=== PATIENT | male | born 1945 | race Caucasian/White ===

== ENCOUNTER → 2018-08-02 | Outpatient (CLI) | payer MEDICARE, BC ==
[~2018-08-02] MED LIST: IOPAMIDOL 370 MG/ML 200 ML INFUS..BTL INJ ONE; SODIUM CHLORIDE 0.9% 100 ML 100 ML ONE; SODIUM CHLORIDE 0.9% 250ML 0 ML ONE
[2018-08-02 09:55] LABS: BLOOD UREA NITROGEN 19 mg/dL (7-26); BUN/CREATININE RATIO 18 (6-25); CREATININE, SERUM 1.04 mg/dL (0.72-1.25); EST GLOMERULAR FILTRATION RATE > 60 ML/MIN (60-)
--- NOTE | 2018-08-02 11:35 | Diagnostic Imaging Report ---
ADDENDUM #1 The following addendum is being made to comply with coding criteria, and does not substantially change the findings or recommendations of the original report All CT scans are performed using radiation dose reduction techniques. Technical factors are evaluated and adjusted to ensure appropriate moderation of exposure. Automated dose management technology is applied to adjust the radiation dose to minimize exposure while achieving a diagnostic-quality image. Signed by: Dr. Willem Huang M.D. on 08/09/2018 12:02 PM ORIGINAL REPORT EXAM: CT Abdomen and Pelvis WITHOUT and WITH contrast INDICATION: Right kidney tumor 3 cm. History of prostate cancer. COMPARISON: None. TECHNIQUE: Abdomen and pelvis were scanned utilizing a multidetector helical scanner from the lung base to the pubic symphysis before and after administration of IV contrast. Coronal and sagittal reformations were obtained. Renal mass protocol was performed. IV CONTRAST: 100 mL of Isovue-370 ORAL CONTRAST: Water RADIATION DOSE: Total DLP: 1721.26 mGy*cm Estimated effective dose: (DLP x 0.015 x size factor) mSv COMPLICATIONS: None FINDINGS: LINES and TUBES: None. LOWER THORAX: Unremarkable HEPATOBILIARY: No focal hepatic lesions. No biliary ductal dilation. GALLBLADDER: No radio-opaque stones or sludge. No wall thickening. SPLEEN: No splenomegaly. PANCREAS: No focal masses or ductal dilatation. ADRENALS: No adrenal nodules KIDNEYS/URETERS: Kidneys enhance symmetrically. No hydronephrosis. 3.0 cm enhancing mass at the posterior inferior right kidney. This is best seen on series 4 image 103. There is an adjacent 3.3 cm cyst. This is best seen on series 4 image 101. 1.0 cm enhancing mass at the inferior left kidney best seen on coronal reformatted image 65. 1.0 cm enhancing mass in the mid left kidney best seen on coronal reformatted image 65. No stones. GI TRACT: No abnormal distention, wall thickening, or evidence of bowel obstruction. Appendix is normal. PELVIC ORGANS/BLADDER: Surgical clips in the region of the prostate gland. The urinary bladder and remainder of the visualized pelvic structures are otherwise unremarkable. LYMPH NODES: Several prominent lymph nodes in the mid abdomen/mesentery with mild adjacent fat stranding are seen. The findings are best seen on series 7 image 61 through 80. This is a nonspecific finding. VESSELS: Unremarkable. PERITONEUM / RETROPERITONEUM: No free air or fluid. BONES: Unremarkable. SOFT TISSUES: Unremarkable. IMPRESSION: 3.0 cm enhancing mass at the posterior inferior right kidney. This is worrisome for renal cell carcinoma. There is an adjacent 3.3 cm cyst. 1.0 cm enhancing mass at the inferior left kidney. This is worrisome for renal cell carcinoma. 1.0 cm enhancing mass in the mid left kidney. This is worrisome for renal cell carcinoma. Several prominent lymph nodes in the mid abdomen/mesentery with mild adjacent fat stranding are seen. This is a nonspecific finding. Signed by: Dr. Willem Huang M.D. on 08/02/2018 11:31 AM
== END ==
LOC: CT 09:03
PROVIDERS: ATTEND Urology
DX: N28.1 Cyst of kidney, acquired (principal)
CPT/HCPCS: 36415; 74178; 82565; 84520; Q9967; J7050

== ENCOUNTER → 2019-01-10 | Outpatient (CLI) | payer MEDICARE, BC ==
[~2019-01-10] MED LIST changes: -SODIUM CHLORIDE 0.9% 100 ML 100 ML ONE; -SODIUM CHLORIDE 0.9% 250ML 0 ML ONE; +SODIUM CHLORIDE 0.9% 250ML 250 ML ONE; +SODIUM CHLORIDE 0.9% 500ML 500 ML ONE
[2019-01-10 15:17] LABS: CREATININE, SERUM 1.34 mg/dL (0.72-1.25)
--- NOTE | 2019-01-11 07:59 | Diagnostic Imaging Report ---
EXAM: CT Abdomen and Pelvis WITHOUT and WITH contrast INDICATION: Gross hematuria. COMPARISON: CTA abdomen/pelvis with and without contrast 08/02/2018. TECHNIQUE: Abdomen and pelvis were scanned utilizing a multidetector helical scanner from the lung base to the pubic symphysis before and after administration of IV contrast. Coronal and sagittal reformations were obtained. Hematuria protocol was performed. IV CONTRAST: 100 mL of Isovue-370 ORAL CONTRAST: Water RADIATION DOSE: Total DLP: 1171.7 mGy*cm Dose modulation, iterative reconstruction, and/or weight based adjustment of the mA/kV was utilized to reduce the radiation dose to as low as reasonably achievable. COMPLICATIONS: None FINDINGS: LINES and TUBES: None. LOWER THORAX: Coronary atherosclerosis. Calcified granuloma in the left lower lobe. Patchy dependent atelectasis. Groundglass opacities within the right middle lobe. HEPATOBILIARY: Diffuse mild fatty liver. No focal hepatic lesions. No biliary ductal dilation. GALLBLADDER: No radio-opaque stones or sludge. No wall thickening. SPLEEN: No splenomegaly. PANCREAS: No focal masses or ductal dilatation. ADRENALS: No adrenal nodules KIDNEYS/URETERS: A 2.9 cm enhancing mass at the posterior inferior right kidney (series 6, image 91) is unchanged in size and appearance. There is an adjacent 3.3 cm cyst. There has been slight interval increase in size of the left mid pole anteriorly enhancing lesion measuring up to 1.4 cm (image 87), previously 1.2 cm by my measurement. Unchanged size of 1 cm enhancing left inferior pole lesion (image 105). There is an unchanged enhancing 0.6 cm right upper pole lesion on series 6, image 53 (precontrast 26 HU; delayed images 85 HU). No evidence of hydronephrosis or stone. No evidence of urothelial lesion on delayed images. GI TRACT: No abnormal distention, wall thickening, or evidence of bowel obstruction. Appendix is normal. PELVIC ORGANS/BLADDER: Surgical clips in the region of the prostate gland. The bladder appears unremarkable. LYMPH NODES: Again noted is mild mesenteric stranding in the mid abdomen with mildly prominent lymph nodes that do not meet pathologic enlargement. VESSELS: Scattered atherosclerotic changes within the abdominal aorta and branch vessels. PERITONEUM / RETROPERITONEUM: No free air or fluid. BONES/SOFT TISSUES: No acute osseous abnormality. Sclerotic lesion within the right iliac bone adjacent to the sacrum likely represents a bone island. No evidence of suspicious lytic lesions. IMPRESSION: Slight interval increase in size of a 1.4 cm left mid pole enhancing solid renal lesion. Unchanged other bilateral enhancing solid renal lesions, measuring up to 3 cm in the right inferior pole. Findings are suspicious for renal malignancy. Several prominent lymph nodes in the mid abdomen/mesentery with mild adjacent fat stranding are seen. This is a nonspecific finding and may be infectious or inflammatory. No lymphadenopathy meeting size criteria for pathologic enlargement within the abdomen or pelvis. Signed by: Dr. Senthil Dahl MD on 01/11/2019 7:55 AM
== END ==
LOC: CT 13:52
PROVIDERS: ATTEND Urology
DX: R31.9 Hematuria, unspecified (principal)
CPT/HCPCS: 36415; 74178; 82565; 84520; 96360; J7040; J7050; Q9967

== ENCOUNTER 2019-05-15 12:22 | Inpatient (IN) | payer MEDICARE, BC ==
[2019-03-31 11:38] LABS: BASOPHILS # (AUTO) 0.1 (0.0-0.1); BASOPHILS % 1.2 % (0.0-1.0); EOSINOPHILS # (AUTO) 0.3 (0.0-0.4); EOSINOPHILS % 5.9 % (0.0-6.0); HEMATOCRIT 40.6 % (38.2-49.6); HEMOGLOBIN 13.3 g/dL (14.0-18.0); LYMPHOCYTES # (AUTO) 1.1 (1.0-3.2); LYMPHOCYTES % 26.1 % (18.0-39.1); MEAN CORPUSCULAR HEMOGLOBIN 30.2 pg (28-32); MEAN CORPUSCULAR HGB CONC 32.8 g/dL (31-35); MEAN CORPUSCULAR VOLUME 92.1 fL (81-99); MONOCYTES # (AUTO) 0.5 (0.2-0.8); MONOCYTES % 11.1 % (4.4-11.3); NEUTROPHILS # (AUTO) 2.3 (2.1-6.9); PLATELET COUNT 252 x10e3/uL (140-360); RED BLOOD COUNT 4.41 x10e6/uL (4.3-5.7); RED CELL DISTRIBUTION WIDTH 13.5 % (11.7-14.4)
--- NOTE | 2019-03-31 12:23 | Diagnostic Imaging Report ---
EXAMINATION: PA and lateral views of the chest. COMPARISON: None CLINICAL HISTORY: Preoperative study for urological procedure DISCUSSION: Lines/tubes: None. Lungs: The lungs are well inflated and clear. There is no evidence of pneumonia or pulmonary edema. Pleura: There is no pleural effusion or pneumothorax. Heart and mediastinum: Tortuous thoracic aorta. Normal heart size. No pulmonary edema. Bones and soft tissues: No acute bony abnormalities. Degenerative changes in the thoracic spine IMPRESSION: No acute cardiopulmonary abnormalities. Signed by: Dr. Froilan Warren M.D. on 03/31/2019 12:19 PM
[2019-05-11 11:38] LABS: BASOPHILS # (AUTO) 0.1 (0.0-0.1); BASOPHILS % 1.3 % (0.0-1.0); EOSINOPHILS # (AUTO) 0.2 (0.0-0.4); EOSINOPHILS % 4.2 % (0.0-6.0); HEMATOCRIT 40.6 % (38.2-49.6); HEMOGLOBIN 13.3 g/dL (14.0-18.0); LYMPHOCYTES # (AUTO) 1.1 (1.0-3.2); LYMPHOCYTES % 23.7 % (18.0-39.1); MEAN CORPUSCULAR HEMOGLOBIN 30.2 pg (28-32); MEAN CORPUSCULAR HGB CONC 32.8 g/dL (31-35); MEAN CORPUSCULAR VOLUME 92.1 fL (81-99); MONOCYTES # (AUTO) 0.5 (0.2-0.8); MONOCYTES % 11.8 % (4.4-11.3); NEUTROPHILS # (AUTO) 2.6 (2.1-6.9); NEUTROPHILS % 58.1 % (38.7-80.0); PLATELET COUNT 239 x10e3/uL (140-360); RED BLOOD COUNT 4.41 x10e6/uL (4.3-5.7); RED CELL DISTRIBUTION WIDTH 13.4 % (11.7-14.4)
[~2019-05-15] VITALS: Ht 188 cm; Wt 91.7 kg
[~2019-05-15 12:22] MED LIST changes: +ATORVASTATIN CA10 MG PO; +BENICAR HCT 401 EACH PO; +CALCIUM CITRAT200 MG PO; +COENZYME Q10100 MG PO; -IOPAMIDOL 370 MG/ML 200 ML INFUS..BTL INJ ONE; +LUPRON DEPOT45 MG INJ; -SODIUM CHLORIDE 0.9% 250ML 250 ML ONE; -SODIUM CHLORIDE 0.9% 500ML 500 ML ONE
--- OUTSIDE RECORDS SUMMARY | 2019-05-15 12:25 | XMS REPORT | Clinical Summary ---
Author Author [facility] Address Unknown Phone Unavailable Care Team Providers Care Rn Obgyn Name Role Phone Parmjit Cevallos MD PCP Unavailable Allergies No Known Allergies Medications End Date Status Medication Sig Dispensed Refills Start Date Active BENICAR HCT 20-12.5 mg TK 1 T PO QD 1 per tablet 6 Active atorvastatin (LIPITOR) 20 TK 1 T PO QHS 3 MG tablet 6 Status Hospital, Clinic, or Ordered Dose Route Frequency Start End Date Other Facility Date Administered Medication Active bupivacaine (MARCAINE) 6 mL inj once 06/29/20 0.25 % (2.5 mg/mL) 16 injection 6 mLIndications: Right shoulder pain, Osteoarthritis of right glenohumeral joint Active methylPREDNISolone 80 mg IM once 06/29/20 acetate (DEPO-MEDROL) 16 injection 80 mgIndications: Right shoulder pain, Osteoarthritis of right glenohumeral joint Active Problems Problem Noted Date Right shoulder pain 06/29/2016 Osteoarthritis of right glenohumeral joint 06/29/2016 Social History Date Tobacco Use Types Packs/Day Years Used Never Smoker Alcohol Use Drinks/Week oz/Week Comments Yes 1 Cans of 0.6 beer Sex Assigned at Date Recorded Not on file Industry Job Start Date Occupation Not on file Not on file Not on file Travel End Travel History Travel Start No recent travel history available. Last Filed Vital Signs Not on file Plan of Treatment Health Maintenance Due Date Last Done Comments COLONOSCOPY SCREENING 1994 SHINGLES VACCINES (#1) 1994 65+ PNEUMOCOCCAL VACCINE 2009 (1 of 2 - PCV13) INFLUENZA VACCINE 06/01/2019 08/01/2015 Results Not on fileafter 05/14/2018 Insurance Type Payer Benefit Subscriber ID Effective Phone Address Plan / Dates Group Medicare MEDICARE MEDICARE xxxxxxxxxx 2009- MICHA, PART A AND Present [place] B PPO BCBS BCBS xxxxxxxxxxxx 2012-P CHOICE resent PPO/JABIER LOPEZ PPO Advance Directives Patient has advance care planning documents on file. For more information, pleas e contact: Micha Ansari [address] [place] [address]
--- OUTSIDE RECORDS SUMMARY | 2019-05-15 12:25 | XMS REPORT ---
Author Author [facility] Address Unknown Phone Unavailable Care Team Providers Care Power Originator Name Role Phone MARIBETH OSHEA Unavailable Unavailable Problems This patient has no known problems. Allergies, Adverse Reactions, Alerts This patient has no known allergies or adverse reactions. Medications This patient has no known medications. Results Test Description Test Time Test Comments Text Results Atomic Results Result Comments CHEST 2 VIEWS 2019-03-31 12:17:00 [place] [address] Patient Name: NATHALIE DELATORRE MR #: [id number] : 1945 Age/Sex: 73/M Req #: [id number] Adm Physician: Ordered by: MARIBETH OSHEA MD Report #: [id number] Location: OR Room/Bed: Procedure: [id number] DX/CHEST 2 VIEWS Exam Date: 03/31/19 Exam Time: 1130 REPORT STATUS: Signed EXAMINATION: PA and lateral views of the chest. COMPARISON: None CLINICAL HISTORY: Preoperative study for urological procedure DISCUSSION: Lines/tubes: None. Lungs: The lungs are well inflated and clear. There is no evidence of pneumonia or pulmonary edema. Pleura: There is no pleural effusion or pneumothorax. Heart and mediastinum: Tortuous thoracic aorta. Normal heart size. No pulmonary edema. Bones and soft tissues: No acute bony abnormalities. Degenerative changes in the thoracic spine IMPRESSION: No acute cardiopulmonary abnormalities. Signed by: Dr. Ray Callejas M.D. on 03/31/2019 12:19 PM Dictated By: RAY CALLEJAS MD 18 Transcribed By: NEMO on 03/31/191218 COPY TO: MARIBETH OSHEA MD CT ABDOMEN/PELVIS WOW 2019-01-11 07:28:00 [place] [address] Patient Name: NATHALIE DELATORRE MR #: [id number] : 1945 Age/Sex: 73/M Req #: [id number] Adm Physician: Ordered by: MARIBETH OSHEA MD Report #: [id number] Location: CT Room/Bed: Procedure: [id number] CT/CT ABDOMEN/PELVIS WOW Exam Date: 01/10/19 Exam Time: 1545 REPORT STATUS: Signed EXAM: CT Abdomen and Pelvis WITHOUT and WITH contrast INDICATION: Gross hematuria. COMPARISON: CTA abdomen/pelvis with and without contrast 08/02/2018. TECHNIQUE: Abdomen and pelvis were scanned utilizing a multidetector helical scanner from the lung base to the pubic symphysis before and after administration of IV contrast. Coronal and sagittal reformations were obtained. Hematuria protocol was performed. IV CONTRAST: 100 mL of Isovue-370 ORAL CONTRAST: Water RADIATION DOSE: Total DLP: 1171.7 mGy*cm Dose modulation, iterative reconstruction, and/or weight based adjustment of the mA/kV was utilized to reduce the radiation dose to as low as reasonably achievable. COMPLICATIONS: None FINDINGS: LINES and TUBES: None. LOWER THORAX: Coronary atherosclerosis. Calcified granuloma in the left lower lobe. Patchy dependent atelectasis. Groundglass opacities within the right middle lobe. HEPATOBILIARY: Diffuse mild fatty liver. No focal hepatic lesions. No biliary ductal dilation. GALLBLADDER: No radio-opaque stones or sludge. No wall thickening. SPLEEN: No splenomegaly. PANCREAS: No focal masses or ductal dilatation. ADRENALS: No adrenal nodules KIDNEYS/URETERS: A 2.9 cm enhancing mass at the posterior inferior right kidney (series 6, image 91) is unchanged in size and appearance. There is an adjacent 3.3 cm cyst. There has been slight interval increase in size of the left mid pole anteriorly enhancing lesion measuring up to 1.4 cm (image 87), previously 1.2 cm by my measurement. Unchanged size of 1 cm enhancing left inferior pole lesion (image 105). There is an unchanged enhancing 0.6 cm right upper pole lesion on series 6, image 53 (precontrast 26 HU; delayed images 85 HU). No evidence of hydronephrosis or stone. No evidence of urothelial lesion on delayed images. GI TRACT: No abnormal distention, wall thickening, or evidence of bowel obstruction. Appendix is normal. PELVIC ORGANS/BLADDER: Surgical clips in the region of the prostate gland. The bladder appears unremarkable. LYMPH NODES: Again noted is mild mesenteric stranding in the mid abdomen with mildly prominent lymph nodes that do not meet pathologic enlargement. VESSELS: Scattered atherosclerotic changes within the abdominal aorta and branch vessels. PERITONEUM / RETROPERITO NEUM: No free air or fluid. BONES/SOFT TISSUES: No acute osseous abnormality. Sclerotic lesion within the right iliac bone adjacent to the sacrum likely represents a bone island. No evidence of suspicious lytic lesions. IMPRESSION: Slight interval increase in size of a 1.4 cm left mid pole enhancing solid renal lesion. Unchanged other bilateral enhancing solid renal lesions, measuring up to 3 cm in the right inferior pole. Findings are suspicious for renal malignancy. Several prominent lymph nodes in the mid abdomen/mesentery with mild adjacent fat stranding are seen. This is a nonspecific finding and may be infectious or inflammatory. No lymphadenopathy meeting size criteria for pathologic enlargement within the abdomen or pelvis. Signed by: Dr. Mejia Dowling MD on 01/11/2019 7:55 AM Dictated By: MEJIA DOWLING MD 0755 Transcribed By: NEMO on 01/11/19 0753 COPY TO: MARIBETH OSHEA MD CT ABDOMEN/PELVIS WOW 2018-08-02 11:11:00 [facility] [address] [place] [address] Patient Name: NATHALIE DELATORRE MR #: [id number] : 1945 Age/Sex: 72/M Req #: [id number] Adm Physician: Ordered by: MARIBETH OSHEA MD Report #: [id number] Location: CT Room/Bed: Procedure: [id number] CT/CT ABDOMEN/PELVIS WOW Exam Date: 08/02/18 Exam Time: 1010 REPORT STATUS: Signed ADDENDUM #1 The following addendum is being made to comply with coding criteria, and does not substantially change the findings or recommendations of the original report All CT scans are performed using radiation dose reduction techniques. Technical factors are evaluated and adjusted to ensure appropriate moderation of exposure. Automated dose management technology is applied to adjust the radiation dose to minimize exposure while achieving a diagnostic-quality image. Signed by: Dr. Willem Huang M.D. on 08/09/2018 12:02 PM ORIGINAL REPORT EXAM: CT Abdomen and Pelvis WITHOUT and WITH contrast INDICATION: Right kidney tumor 3 cm. History of prostate cancer. COMPARISON: None. TECHNIQUE: Abdomen and pelvis were scanned utilizing a multidetector helical scanner from the lung base to the pubic symphysis before and after administration of IV contrast. Coronal and sagittal reformations were obtained. Renal mass protocol was performed. IV CONTRAST: 100 mL of Isovue-370 ORAL CONTRAST: Water RADIATION DOSE: Total DLP: 1721.26 mGy*cm Estimated effective dose: (DLP x 0.015 x size factor) mSv COMPLICATIONS: None FINDINGS: LINES and TUBES: None. LOWER THORAX: Unremarkable HEPATOBILIARY: No focal hepatic lesions. No biliary ductal dilation. GALLBLADDER: No radio-opaque stones or sludge. No wall thickening. SPLEEN: No splenomegaly. PANCREAS: No focal masses or ductal dilatation. ADRENALS: No adrenal nodules KIDNEYS/URETERS: Kidneys enhance symmetrically. No hydronephrosis. 3.0 cm enhancing mass at the posterior inferior right kidney. This is best seen on series 4 image 103. There is an adjacent 3.3 cm cyst. This is best seen on series 4 image 101. 1.0 cm enhancing mass at the inferior left kidney best seen on coronal reformatted image 65. 1.0 cm enhancing mass in the mid left kidney best seen on coronal reformatted image 65. No stones. GI TRACT: No abnormal distention, wall thickening, or evidence of bowel obstruction. Appendix is normal. PELVIC ORGANS/BLADDER: Surgical clips in the region of the prostate gland. The urinary bladder and remainder of the visualized pelvic structures are otherwise unremarkable. LYMPH NODES: Several prominent lymph nodes in the mid abdomen/mesentery with mild adjacent fat stranding are seen. The findings are best seen on series 7 image 61 through 80. This is a nonspecific finding. VESSELS: Unremarkable. PERITONEUM / RETROPERITONEUM: No free air or fluid. BONES: Unremarkable. SOFT TISSUES: Unremarkable. IMPRESSION: 3.0 cm enhancing mass at the posterior inferior right kidney. This is worrisome for renal cell carcinoma. There is an adjacent 3.3 cm cyst. 1.0 cm enhancing mass at the inferior left kidney. This is worrisome for renal cell carcinoma. 1.0 cm enhancing mass in the mid left kidney. This is worrisome for renal cell carcinoma. Several prominent lymph nodes in the mid abdomen/mesentery with mild adjacent fat stranding are seen. This is a nonspecific finding. Signed by: Dr. Willem Huang M.D. on 08/02/2018 11:31 AM Dictated By: WILLEM HUANG MD, MD 1202 Transcribed By: NEMO on 08/02/18 1131 COPY TO: MARIBETH OSHEA MD
[2019-05-15] MEDS ORDERED: CEFAZOLIN SOD 1 GM/NS 50ML 50 ML IV ONE (12:36)
[2019-05-15] MEDS ORDERED: MANNITOL 25% 12.5GM/50ML 50 ML ONE (14:20)
[2019-05-15] MEDS ORDERED: MUPIROCIN 2% OINT 22 GM TUBE ONE (14:20)
[2019-05-15] MEDS ORDERED: HYDROMORPHONE 2MG/ML 2 MG/ML ML ONE (17:29)
[2019-05-15] MEDS ORDERED: FENTANYL CITRATE/PF 100MCG/2 ML INJ ONE ×2 (17:29→17:47)
[2019-05-15] MEDS ORDERED: NALOXONE HCL INJ 0.4 MG/ML AMP IV PRN (17:30)
[2019-05-15] MEDS ORDERED: DIPHENHYDRAMINE HCL INJ 50 MG/ML VIAL IM PRN (17:30)
[2019-05-15] MEDS ORDERED: ACETAMINOPHEN 1000 MG/100 ML IV PRN (17:30)
[2019-05-15] MEDS ORDERED: MORPHINE SULFATE 1 MG/ML 30ML PCA IV PRN (17:30)
[2019-05-15] MEDS ORDERED: ONDANSETRON HCL INJ 2MG/ML 2ML 2 MG/ML VIAL IV PRN (17:30)
[2019-05-15] MEDS ORDERED: MIDAZOLAM HCL 2 MG/2 ML VIAL ONE (17:47)
[2019-05-15] MEDS ORDERED: KETAMINE HCL INJ 50 MG/ML 10 ML VIAL ONE (17:47)
[2019-05-15 18:13] LABS: BASOPHILS # (AUTO) 0.1 (0.0-0.1); BASOPHILS % 0.5 % (0.0-1.0); EOSINOPHILS % 0.3 % (0.0-6.0); HEMATOCRIT 38.4 % (38.2-49.6); HEMOGLOBIN 12.8 g/dL (14.0-18.0); LYMPHOCYTES # (AUTO) 1.1 (1.0-3.2); LYMPHOCYTES % 11.5 % (18.0-39.1); MEAN CORPUSCULAR HEMOGLOBIN 30.6 pg (28-32); MEAN CORPUSCULAR HGB CONC 33.3 g/dL (31-35); MEAN CORPUSCULAR VOLUME 91.9 fL (81-99); MONOCYTES # (AUTO) 0.3 (0.2-0.8); NEUTROPHILS # (AUTO) 8.2 (2.1-6.9); PLATELET COUNT 220 x10e3/uL (140-360); RED BLOOD COUNT 4.18 x10e6/uL (4.3-5.7); RED CELL DISTRIBUTION WIDTH 13.2 % (11.7-14.4)
[2019-05-15 18:30] VITALS: BP 130/74
[2019-05-15 18:30] LABS: ANION GAP 14.6 mmol/L (8-16); CALCIUM 8.7 mg/dL (8.4-10.2); CREATININE, SERUM 1.2 mg/dL (0.72-1.25); POTASSIUM 3.6 mmol/L (3.5-5.1)
--- OUTSIDE RECORDS SUMMARY | 2019-05-15 18:34 | XMS REPORT | Clinical Summary ---
Author Author [facility] Address Unknown Phone Unavailable Care Team Providers Care County Director Name Role Phone Parmjit Cevallos MD PCP [...] more information, pleas e contact: Micha Ansari [address] [place] [address]
[2019-05-15] MEDS ORDERED: DEXAMETHASONE SOD PHOS INJ 4 MG/ML VIAL ONE (18:42)
[2019-05-15] MEDS ORDERED: ROCURONIUM BROMIDE 10 MG/ML 5ML VIAL ONE (18:42)
[2019-05-15] MEDS ORDERED: NEOSTIGMINE 5 MG/5ML SYR ONE (18:42)
[2019-05-15] MEDS ORDERED: PROPOFOL IV EMULSION 10 MG/ML 20 ML VIAL ONE (18:42)
[2019-05-15] MEDS ORDERED: LIDOCAINE HCL 2% LOCAL INJ 5 ML SDV VIAL INJ ONE (18:42)
[2019-05-15] MEDS ORDERED: SEVOFLURANE INHAL SOLN 250 ML PEN BTL ONE (18:42)
[2019-05-15] MEDS ORDERED: GLYCOPYRROLATE INJ 1MG/ 5 ML SYR ONE (18:42)
[2019-05-15] MEDS ORDERED: ONDANSETRON HCL INJ 2MG/ML 2ML 2 MG/ML VIAL ONE (18:42)
[2019-05-15] MEDS ORDERED: ACETAMINOPHEN 1000 MG/100 ML 100 ML IV PRN (18:45)
[2019-05-15 19:00] VITALS: BP_SYST 117; BP_SYST 120; BP_DIAS 74; BP_DIAS 75
--- NOTE | 2019-05-15 19:18 | NUR ---
Dr. Mendez returned page about consult. already knows about patient.
--- NOTE | 2019-05-15 19:57 | Diagnostic Imaging Report ---
EXAMINATION: CHEST SINGLE (PORTABLE) INDICATION: Renal mass. Rule out pneumothorax ^R/O PTX ^[id number] ^[id number] COMPARISON: 03/31/2019. CT scan 01/10/2019. FINDINGS: TUBES and LINES: None. LUNGS: Lungs are well inflated. Lungs are clear. There is no evidence of pneumonia or pulmonary edema. PLEURA: No pleural effusion or pneumothorax. HEART AND MEDIASTINUM: The cardiomediastinal silhouette is unremarkable. BONES AND SOFT TISSUES: No acute osseous lesion. Soft tissues are unremarkable. UPPER ABDOMEN: Free air under the diaphragm could be due to recent procedure. IMPRESSION: Free air under the diaphragm could be due to recent procedure. No pneumothorax is seen. Signed by: Dr. Willem Huang M.D. on 05/15/2019 7:54 PM
[2019-05-15] MEDS: D5.45%NS/KCL 20MEQ 1,000 ML IV SCH (20:47)
[2019-05-15 21:00] VITALS: BP 100/68
[2019-05-15 22:00] VITALS: BP 102/66
[2019-05-15] MEDS: CEFAZOLIN SOD 1 GM/NS 50ML 50 ML IV SCH (22:22)
[2019-05-15 23:00] VITALS: BP 122/75
[2019-05-16] VITALS (23 sets, daily range): BP systolic 103–143; BP diastolic 61–83
[2019-05-16] MEDS: D5.45%NS/KCL 20MEQ 1,000 ML IV SCH (03:16)
[2019-05-16 05:08] LABS: BASOPHILS % 0.1 % (0.0-1.0); HEMATOCRIT 37.9 % (38.2-49.6); HEMOGLOBIN 12.3 g/dL (14.0-18.0); LYMPHOCYTES # (AUTO) 0.4 (1.0-3.2); LYMPHOCYTES % 3.2 % (18.0-39.1); MEAN CORPUSCULAR HEMOGLOBIN 30.4 pg (28-32); MEAN CORPUSCULAR HGB CONC 32.5 g/dL (31-35); MEAN CORPUSCULAR VOLUME 93.6 fL (81-99); MONOCYTES # (AUTO) 1.1 (0.2-0.8); MONOCYTES % 8.7 % (4.4-11.3); NEUTROPHILS # (AUTO) 10.8 (2.1-6.9); NEUTROPHILS % 87.6 % (38.7-80.0); PLATELET COUNT 228 x10e3/uL (140-360); RED BLOOD COUNT 4.05 x10e6/uL (4.3-5.7); RED CELL DISTRIBUTION WIDTH 13.2 % (11.7-14.4)
[2019-05-16 05:30] LABS: ANION GAP 14.2 mmol/L (8-16); CALCIUM 9.1 mg/dL (8.4-10.2); CREATININE, SERUM 1.32 mg/dL (0.72-1.25); POTASSIUM 4.2 mmol/L (3.5-5.1)
[2019-05-16] MEDS: CEFAZOLIN SOD 1 GM/NS 50ML 50 ML IV SCH ×3 (05:53→22:23)
[2019-05-16 06:24] LABS: BAND NEUTROPHILS % (MANUAL) 6 %; LYMPHOCYTES % (MANUAL) 1 % (19-48); MONOCYTES % (MANUAL) 10 % (3.4-9.0); NEUTROPHILS % (MANUAL) 83 % (40-74); PLATELET ESTIMATE ADEQUATE; PLATELET MORPHOLOGY COMMENT NORMAL; RBC MORPHOLOGY COMMENT NORMAL
[2019-05-16] MEDS ORDERED: ONDANSETRON HCL INJ 2MG/ML 2ML 2 MG/ML VIAL IV PRN ×2 (08:30)
[2019-05-16] MEDS ORDERED: PROMETHAZINE 12.5MG/ NACL 0.9% 12.5 MG/50 ML BAG IV PRN (08:30)
[2019-05-16] MEDS ORDERED: NALOXONE HCL INJ 0.4 MG/ML AMP IV PRN (08:30)
[2019-05-16] MEDS ORDERED: HYDROMORPHONE 0.2MG/ML-SOD CHL 30ML PCA SYRINGE IV PRN (08:30)
[2019-05-16] MEDS: DEXTROSE 5%/0.45% SOD CHL 1,000 ML IV SCH ×2 (12:28→18:44)
[2019-05-16] MEDS: HYDROMORPHONE 2MG/ML 2 MG/ML ML IV PRN ×2 (19:09→22:27)
[2019-05-17] VITALS (22 sets, daily range): BP systolic 100–143; BP diastolic 66–90
--- NOTE | 2019-05-17 03:24 | NUR ---
Pt presents with fever throughout night. Refuses tx multiple times. Offered cold wash rags and ice packs. Pt accepted cold rag, states he does not want anything else at this time. Will continue to monitor and pass info to day shift RN/physician in AM.
[2019-05-17 05:08] LABS: BASOPHILS % 0.2 % (0.0-1.0); HEMATOCRIT 33.5 % (38.2-49.6); HEMOGLOBIN 11.3 g/dL (14.0-18.0); LYMPHOCYTES # (AUTO) 0.6 (1.0-3.2); LYMPHOCYTES % 4.9 % (18.0-39.1); MEAN CORPUSCULAR HEMOGLOBIN 31.2 pg (28-32); MEAN CORPUSCULAR HGB CONC 33.7 g/dL (31-35); MEAN CORPUSCULAR VOLUME 92.5 fL (81-99); MONOCYTES # (AUTO) 1.3 (0.2-0.8); MONOCYTES % 10.1 % (4.4-11.3); NEUTROPHILS # (AUTO) 10.7 (2.1-6.9); NEUTROPHILS % 84.1 % (38.7-80.0); PLATELET COUNT 193 x10e3/uL (140-360); RED BLOOD COUNT 3.62 x10e6/uL (4.3-5.7); RED CELL DISTRIBUTION WIDTH 13.3 % (11.7-14.4)
[2019-05-17 05:24] LABS: ANION GAP 11.7 mmol/L (8-16); CALCIUM 8.7 mg/dL (8.4-10.2); CREATININE, SERUM 1.23 mg/dL (0.72-1.25); POTASSIUM 3.7 mmol/L (3.5-5.1)
[2019-05-17] MEDS: DEXTROSE 5%/0.45% SOD CHL 1,000 ML IV SCH ×2 (05:35→13:04)
[2019-05-17] MEDS: CEFAZOLIN SOD 1 GM/NS 50ML 50 ML IV SCH ×3 (06:00→11:56)
[2019-05-17] MEDS: HYDROMORPHONE 2MG/ML 2 MG/ML ML IV PRN ×4 (07:39→22:16)
[2019-05-17 08:31] LABS: LYMPHOCYTES % (MANUAL) 5 % (19-48); MONOCYTES % (MANUAL) 10 % (3.4-9.0); NEUTROPHILS % (MANUAL) 84 % (40-74); PROMYELOCYTES % (MANUAL) 1 % (0-0)
[2019-05-17 08:32] LABS: HYPOCHROMASIA SLIGHT; PLATELET ESTIMATE ADEQUATE; PLATELET MORPHOLOGY COMMENT NORMAL
--- NOTE | 2019-05-17 21:09 | NUR ---
Pt transfered with telemetry and O2 monitoring to room 101. No complications noted.
[2019-05-18] VITALS (7 sets, daily range): BP systolic 119–162; BP diastolic 81–95
[2019-05-18] MEDS: DEXTROSE 5%/0.45% SOD CHL 1,000 ML IV SCH ×3 (00:30→22:38)
[2019-05-18] MEDS: CEFAZOLIN SOD 1 GM/NS 50ML 50 ML IV SCH ×3 (05:01→22:20)
[2019-05-18 05:51] LABS: BASOPHILS % 0.2 % (0.0-1.0); EOSINOPHILS % 0.2 % (0.0-6.0); HEMATOCRIT 34.6 % (38.2-49.6); HEMOGLOBIN 11.3 g/dL (14.0-18.0); LYMPHOCYTES # (AUTO) 0.8 (1.0-3.2); LYMPHOCYTES % 7.1 % (18.0-39.1); MEAN CORPUSCULAR HEMOGLOBIN 30.1 pg (28-32); MEAN CORPUSCULAR HGB CONC 32.7 g/dL (31-35); MEAN CORPUSCULAR VOLUME 92.3 fL (81-99); MONOCYTES # (AUTO) 0.9 (0.2-0.8); MONOCYTES % 8.8 % (4.4-11.3); NEUTROPHILS # (AUTO) 8.8 (2.1-6.9); NEUTROPHILS % 82.5 % (38.7-80.0); PLATELET COUNT 175 x10e3/uL (140-360); RED BLOOD COUNT 3.75 x10e6/uL (4.3-5.7); RED CELL DISTRIBUTION WIDTH 12.9 % (11.7-14.4)
[2019-05-18 06:10] LABS: ANION GAP 9.6 mmol/L (8-16); BLOOD UREA NITROGEN 16 mg/dL (7-26); BUN/CREATININE RATIO 16 (6-25); CALCIUM 8.7 mg/dL (8.4-10.2); CARBON DIOXIDE 27 mmol/L (22-29); CHLORIDE 102 mmol/L (98-107); CREATININE, SERUM 0.98 mg/dL (0.72-1.25); EST GLOMERULAR FILTRATION RATE > 60 ML/MIN (60-); GLUCOSE 118 mg/dL (74-118); POTASSIUM 3.6 mmol/L (3.5-5.1); SODIUM 135 mmol/L (136-145)
--- NOTE | 2019-05-18 07:43 | NUR ---
RECEIVED PATIENT AWAKE RESTING IN BED NO SIGNS OF DISTRESS. BED LOW, WHEELS LOCKED, SIDE RAILS X2. CALL LIGHT IN REACH WILL CONTINUE TO MONITOR PATIENT.
--- NOTE | 2019-05-18 09:15 | NUR ---
PATIENT A/O X3, EVEN RESPIRATIONS ON RA. BOWEL SOUNDS ACTIVE, SKIN INTACT, NO EDEMA. ZIMMERMAN IN PLACE WITH CLEAR YELLOW URINE. PATIENT NPO AT THIS TIME. TELEMETRY #21 SR. RIGHT ABDOMINAL DRESSING CLEAN, DRY, AND INTACT. LEFT AC 20 GAUGE IV WITH IV FLUIDS AT 100 CC/HR. VITAL SIGNS STABLE. WILL CONTINUE TO MONITOR PATIENT.
[2019-05-18] MEDS: ACETAMINOPHEN/CODEINE 300MG - 30MG TAB PO PRN (13:50)
[2019-05-18] MEDS ORDERED: BISACODYL 10 MG SUPP PR ONE (14:00)
--- NOTE | 2019-05-18 14:08 | NUR ---
REMOVED PATIENTS ZIMMERMAN. CATHETER TIP INTACT ON REMOVAL. PATIENT DUE TO VOID.
--- NOTE | 2019-05-18 15:41 | NUR ---
CM SPOKE TO PATIENT AT BEDSIDE REGARDING DISCHARGE PLAN. PHYSICAL THERAPY RECOMMENDING WALKER AT THIS TIME NO HOME HEALTH AT THIS TIME. CM SPOKE TO PATIENT, PATIENT HAS WALKER AT HOME. PATIENT INFORMED TO HAVE BRING WALKER WHEN DISCHARGED SO WE CAN VERIFY THAT HE HAS IT FOR A SAFE DISCHARGE.
--- NOTE | 2019-05-18 17:53 | NUR ---
PATIENT HAS VOIDED SINCE ZIMMERMAN REMOVAL.
[2019-05-18] MEDS: HYDROMORPHONE 2MG/ML 2 MG/ML ML IV PRN (22:39)
[2019-05-19 00:05] VITALS: BP 150/84
[2019-05-19 04:00] VITALS: BP_SYST 146; BP_SYST 162; BP_DIAS 81; BP_DIAS 85
[2019-05-19] MEDS: CEFAZOLIN SOD 1 GM/NS 50ML 50 ML IV SCH ×2 (06:34→14:03)
[2019-05-19] MEDS: DEXTROSE 5%/0.45% SOD CHL 1,000 ML IV SCH (06:35)
--- NOTE | 2019-05-19 07:23 | NUR ---
Patient endorsed to next shift for continuity of care.
[2019-05-19 07:42] VITALS: BP 151/87
[2019-05-19 09:05] LABS: BASOPHILS % 0.4 % (0.0-1.0); EOSINOPHILS # (AUTO) 0.1 (0.0-0.4); EOSINOPHILS % 1.7 % (0.0-6.0); HEMATOCRIT 35.5 % (38.2-49.6); HEMOGLOBIN 12.3 g/dL (14.0-18.0); LYMPHOCYTES # (AUTO) 0.6 (1.0-3.2); MEAN CORPUSCULAR HEMOGLOBIN 31.2 pg (28-32); MEAN CORPUSCULAR HGB CONC 34.6 g/dL (31-35); MEAN CORPUSCULAR VOLUME 90.1 fL (81-99); MONOCYTES # (AUTO) 0.8 (0.2-0.8); MONOCYTES % 10.1 % (4.4-11.3); NEUTROPHILS # (AUTO) 6.3 (2.1-6.9); NEUTROPHILS % 79.8 % (38.7-80.0); PLATELET COUNT 223 x10e3/uL (140-360); RED BLOOD COUNT 3.94 x10e6/uL (4.3-5.7); RED CELL DISTRIBUTION WIDTH 12.8 % (11.7-14.4)
[2019-05-19 09:22] LABS: BLOOD UREA NITROGEN 15 mg/dL (7-26); BUN/CREATININE RATIO 17 (6-25); CARBON DIOXIDE 27 mmol/L (22-29); CHLORIDE 99 mmol/L (98-107); CREATININE, SERUM 0.89 mg/dL (0.72-1.25); EST GLOMERULAR FILTRATION RATE > 60 ML/MIN (60-); GLUCOSE 119 mg/dL (74-118); SODIUM 135 mmol/L (136-145)
[2019-05-19] MEDS: ACETAMINOPHEN/CODEINE 300MG - 30MG TAB PO PRN (09:43)
[2019-05-19 10:00] VITALS: BP 151/87
--- NOTE | 2019-05-19 11:19 | NUR ---
Removed right CAROLYN drain at this time. Patient tolerated well. Applied gauze dressing.
[2019-05-19 11:47] VITALS: BP 167/92
[2019-05-19 15:38] VITALS: BP 129/83
--- NOTE | 2019-05-19 16:26 | NUR ---
PT IS TO DISCHARGE TODAY, EDUCATED ABOUT IMM, SIGNED, FILED IN CHART, WITH COPY LEFT WITH FAMILY AT BEDSIDE.
[2019-05-19] MEDS ORDERED: POTASSIUM CHLORIDE 10MEQ EA PO ONE (16:30)
[2019-05-19] MEDS ORDERED: TYLENOL WITH C1 EACH PO (16:39)
--- NOTE | 2019-05-19 18:13 | Discharge Summary ---
CLERK OF SUPERIOR COURT AND SURGEON: Pierce Barrera MD. FINAL DIAGNOSES: 1. Right renal mass and right renal cyst. 2. Status post right partial nephrectomy with uproofing of the right renal cyst done by Dr. Pierce Barrera and Dr. Jimmy Barrera. SUMMARY: The patient is a 73-year-old male, status post procedures, right partial nephrectomy with uproofing of the right renal cyst. Procedures were done and the patient admitted to the ICU. The patient was stable. Recovery with the BUSINESS SUPPORT COORDINATOR and subsequently discontinued due to the patient's increasing nausea and vomiting. He did well on IV p.r.n. Dilaudid. The patient is stable now. He is comfortable. Blood pressure is slightly elevated. The patient will resume his home medication. Potassium is low at 3, we will replace. The patient is overall stable. Discharged home has been cleared. CAROLYN drain has been removed and the patient is comfortable. No Muro catheter. He is tolerating his diet. The patient will resume his home medications same. He will take Tylenol p.r.n. as needed for pain. The patient is stable and discharged home today. Follow up with Dr. Pierce Barrera in approximately 1 to 2 weeks. MD ALFONZO Chamberlain/ANGELIKA /[id number]
--- NOTE | 2019-07-03 23:59 | Operative Report ---
DATE OF PROCEDURE: 05/15/2019 SURGEON: Pierce Barrera MD PREOPERATIVE DIAGNOSES: 1. Right renal mass. 2. Right renal cyst. 3. Skin lesion. POSTOPERATIVE DIAGNOSES: 1. Right renal mass. 2. Right renal cyst. 3. Skin lesion. OPERATION PERFORMED: 1. Excision of skin lesion (separate procedure performed with separate incision through skin lesion). 2. Right partial nephrectomy (separate procedure performed for the solid mass of the right kidney). 3. Unroofing of right renal cyst (separate procedure performed to manage the right renal cyst in the vicinity of the renal mass). CHAPLAIN: Jimmy Barrera MD COMPLICATIONS: None. CLINICAL SUMMARY: Glen Mnior is a 73-year-old man with prostate cancer. He has been followed for renal mass. The patient elected to proceed with the above surgery. He is aware of the risks of bleeding, infection, injury to adjacent structures, need for additional procedures, incomplete cancer resection, and he elected to proceed. OPERATIVE PROCEDURE IN DETAIL: Informed consent was verified. Glen Minor was properly identified, taken to the operating room, placed on the operating table in supine position. Anesthesia was uneventfully begun. The Muro catheter was then placed. The patient was carefully and gently repositioned in flank position with all pressure points carefully well padded. His abdomen, chest, and back were prepared and draped in usual sterile fashion. There was a skin lesion in the vicinity of our incision. The patient wanted to excise. We excised the skin lesion with electrocautery was utilized to achieve hemostasis. The incision was then approximated with skin jamia. Right flank incision was then made, carried through all layers of the chest and abdominal wall. We exposed the retroperitoneal space. We isolated the kidney. We obtained vascular control of the vascular pedicle. We clamped the artery following administration of mannitol. We then excised the renal mass and sent for histopathological analysis. For the renal mass, margin included the cyst wall. We then unroofed the remainder of the cyst wall. We utilized chromic suture to control bleeders. We then placed 2-0 chromic suture through the renal capsule in interrupted fashion, utilized FloSeal and Surgicel and then tied down the 2-0 chromic sutures and obtained hemostasis of the renal defect and the vascular control was released. Hemostasis was excellent. Histopathology revealed negative surgical margins. Copious irrigation was performed. We approximated Gerota fascia over the defect. A Ru drain was placed through a separate stab incision, secured to the skin with nylon suture. The patient's incision was then approximated in 2 layers utilizing heavy Vicryl suture in interrupted [id number] fashion. Skin was approximated with skin jamia. The patient was then uneventfully reversed from anesthesia and taken to recovery room in stable condition. There were no complications to the procedure. He tolerated the procedure well. For estimated blood loss, please refer to the Anesthesia record. Sponge, needle, and instrument count were of course correct x2 at the end of the case. The patient was then uneventfully reversed from anesthesia and taken to the recovery room in stable condition. He will proceed with routine postoperative care and of course ongoing urological followup. MD VERONICA Yousif/CLAIREL /[id number]
== END 2019-05-19 17:05 | disposition home or self-care (01) | DRG 657 ==
LOC: OR 12:22 → ICU 18:32 → MED/SURG 05-17 20:42
PROVIDERS: ADMIT Urology; ATTEND Urology
PROC: 0TB00ZZ Excision of Right Kidney, Open Approach (ICD-10-PCS; 2019-05-15)
PROC: 0HB7XZZ Excision of Abdomen Skin, External Approach (ICD-10-PCS; 2019-05-15)
PROC: 0TB00ZZ Excision of Right Kidney, Open Approach (ICD-10-PCS; principal; 2019-05-15 14:30)
DX: D30.01 Benign neoplasm of right kidney (principal); N17.9 Acute kidney failure, unspecified; N28.89 Other specified disorders of kidney and ureter; N28.1 Cyst of kidney, acquired; I10 Essential (primary) hypertension; E78.5 Hyperlipidemia, unspecified; L98.9 Disorder of the skin and subcutaneous tissue, unspecified; C61 Malignant neoplasm of prostate
CPT/HCPCS: 36415; 71045; 71046; 80048; 83036; 83735; 85025; 86850; 86900; 88300; 88304; 88305; 88307; 88329; 88331; 88342; 93005; 96360; 97139; J0690; J1100; J2001; J2150; J2250; J2270; J2405; J3010; J3590

== ENCOUNTER → 2019-12-28 | Outpatient (CLI) | payer MEDICARE, BC ==
[~2019-12-28] MED LIST changes: +TYLENOL WITH C1 EACH PO
--- NOTE | 2019-12-28 17:52 | Diagnostic Imaging Report ---
EXAM: Renal Ultrasound INDICATION: Renal malignancy COMPARISON: CT abdomen and pelvis of 01/10/2019 TECHNIQUE: Transverse and longitudinal images of the kidneys and bladder were obtained. FINDINGS: Right Kidney: Status post right partial nephrectomy. Length: 10.0 cm Appearance: Normal echogenicity. Collecting system: No hydronephrosis Stones: None Cyst/Mass: None Left Kidney: Length: 10.8 cm Appearance: Normal echogenicity. Collecting system: No hydronephrosis Stones: None Cyst/Mass: None Bladder: No mass or calculi. Bilateral ureteral jets visualized. Prevoid volume estimate of 217 cc. Prostate appears unremarkable, measuring 2.8 x 2.1 x 2.7 cm and volume estimate of 9 cc. IMPRESSION: Status post right partial nephrectomy. No hydronephrosis, renal calculus, or solid mass lesion. Signed by: Whitney Solis MD on 12/28/2019 5:50 PM
== END ==
LOC: US 15:37
PROVIDERS: ATTEND Urology
DX: D41.01 Neoplasm of uncertain behavior of right kidney (principal); D41.02 Neoplasm of uncertain behavior of left kidney
CPT/HCPCS: 76770